=== PATIENT | male | born 1985 | race African-American/Black ===

== ENCOUNTER 2017-06-27 10:22 | Emergency (ER) | payer SELFPAY ==
[~2017-06-27] VITALS: Ht 182.9 cm; Wt 77.3 kg
[2017-06-27 10:39] VITALS: BP 140/84; PULSE 93; TEMP 99.4
== END 2017-06-27 11:45 | disposition left against medical advice (07) ==
LOC: COL.ER 10:22
DX: M54.5 Low back pain (principal)